=== PATIENT | female | born 1960 | race Caucasian/White ===

== ENCOUNTER 2018-05-20 06:12 | Day surgery (SDC) | payer OTHER ==
[2018-05-20] MEDS: BROMFENAC SODIUM 1.7 ML OPH DROP OPER (06:52)
[2018-05-20] MEDS: LACTATED RINGER'S 1,000 ML IV (06:52)
[2018-05-20] MEDS: PHENYLephrine 10% 5 ML OPH OPER (06:53)
[2018-05-20] MEDS: LIDOCAINE 3.5% GEL TUBE OPER (06:53)
[2018-05-20] MEDS: TROPICAMIDE 1% 15 ML OPH OPER (06:53)
[2018-05-20] MEDS: TETRACAINE 0.5% 4 ML OPH OPER ×2 (06:53→10:26)
[2018-05-20] MEDS: MOXIFLOXACIN 0.5% 3 ML OPH OPER (06:53)
[2018-05-20] MEDS: CYCLOPENTOLATE 2% 2 ML OPH OPER (06:53)
[2018-05-20] MEDS ORDERED: TETRACAINE 0.5% 4 ML OPH (07:25)
[2018-05-20] MEDS ORDERED: LIDOCAINE 1%/EPI (1:100,000) (MDV) 20 ML (07:25)
[2018-05-20] MEDS ORDERED: EPINEPHrine 1 MG INJ (07:26)
[2018-05-20 07:47] LABS: INR 0.99; PARTIAL THROMBOPLASTIN TIME 28.5 Sec (23.0-35.0); PROTIME 13.2 Sec (11.9-14.9)
[2018-05-20] MEDS ORDERED: TRYPAN BLUE 0.5 ML SYG IO (07:51)
[2018-05-20] MEDS ORDERED: MIDAZOLAM 1 MG/ML 2 ML INJ (07:57)
[2018-05-20] MEDS ORDERED: FENTAnyl 50 MCG/ML VIAL (07:58)
[2018-05-20] MEDS ORDERED: ONDANSETRON 4 MG INJ IV (08:00)
[2018-05-20] MEDS ORDERED: OXYCODONE/ACETAMINOPHEN (5/325) TAB PO ×2 (08:00)
[2018-05-20] MEDS ORDERED: FENTAnyl 50 MCG/ML VIAL IV ×3 (08:00)
[2018-05-20] MEDS ORDERED: FAMOTIDINE 20 MG INJ (08:01)
[2018-05-20] MEDS ORDERED: ONDANSETRON 4 MG INJ (08:01)
[2018-05-20] MEDS ORDERED: CEFAZOLIN 1 GM INJ (08:21)
[2018-05-20] MEDS: LIDOCAINE 1%/EPI 30 ML INJ INJ ×2 (08:47→10:26)
[2018-05-20] MEDS: NA HYALURONATE/CHONDROITIN 0.5 ML SYG OP ×2 (08:48→10:26)
[2018-05-20] MEDS ORDERED: NA HYALURONATE/CHONDROITIN 0.5 ML SYG (09:27)
[2018-05-20] MEDS: CARBACHOL 0.01% 1.5 ML OPH INJ (10:26)
[2018-05-20] MEDS: TOBRAMYCIN/DEXAMETH 3.5 GM OPH OINT (10:26)
== END 2018-05-20 10:30 | disposition home or self-care (01) ==
LOC: SDS 06:12
DX: H25.89 Other age-related cataract (principal); I48.91 Unspecified atrial fibrillation; E78.5 Hyperlipidemia, unspecified; Z95.0 Presence of cardiac pacemaker; I10 Essential (primary) hypertension
CPT/HCPCS: 66984; 85610; 85730